=== PATIENT | male | born 1960 | race Asian ===

== ENCOUNTER 2025-03-23 06:40 | Day surgery (SDC) | payer BC ==
[2025-03-17 08:28] VITALS: BMI 28.8
[2025-03-23 08:16] VITALS: TEMP 97.7
[2025-03-23 08:38] VITALS: PULSE 61
[2025-03-23 08:43] VITALS: BP 108/72; RESP 19
== END 2025-03-23 08:52 | disposition home or self-care (01) ==
LOC: JASU-ENDO 06:40
PROVIDERS: ATTEND Internal Medicine Gastroenterology
PROC: 0DBK8ZX Excision of Ascending Colon, Via Natural or Artificial Opening Endoscopic, Diagnostic (ICD-10-PCS; principal; 2025-03-23 07:30)
DX: Z12.11 Encounter for screening for malignant neoplasm of colon (principal); D12.2 Benign neoplasm of ascending colon
CPT/HCPCS: 82962; 88305-TC